=== PATIENT | male | born 1970 | race Caucasian/White ===

== ENCOUNTER → 2017-02-27 | Outpatient (CLI) | payer BC, OTHER ==
[~2017-02-27] MED LIST: ASCO10003 PO; FLNIN NAE; GLUCCAP5 PO; METO-217 PO; METO25TA3 PO; MULT-506 PO; NSNN50; PRLSR20 PO; TADA20TA PO
--- NOTE | 2017-02-27 13:00 | DIAGNOSTIC IMAGING REPORT ---
ULTRASOUND RIGHT LOWER EXTREMITY VENOUS CLINICAL HISTORY: Right leg pain and swelling. COMPARISON STUDY: No priors. TECHNIQUE: Real-time, grayscale, and color Doppler sonography of the deep veins of the right lower extremity was performed from the inguinal crease to the calf. Compression and augmentation were utilized. FINDINGS: There is no sonographic evidence of deep venous thrombosis identified in the right lower extremity. The common femoral, superficial femoral, and popliteal veins are patent and normally compressible. The greater saphenous vein and the profunda femoris vein at the junction with the common femoral vein are clear. The visualized calf veins are patent. IMPRESSION: There is no sonographic evidence of deep venous thrombosis identified in the right lower extremity. Electronically signed by: Robert Telles M.D. 02/27/2017 12:59 PM Dictated Date/Time: 02/27/2017 12:50 PM
== END | disposition home or self-care (01) ==
LOC: C.ULTRBC 12:15
PROVIDERS: ATTEND Physician Assistant
DX: M79.661 Pain in right lower leg (principal); M79.89 Other specified soft tissue disorders; Z98.890 Other specified postprocedural states

== ENCOUNTER → 2017-11-23 | Outpatient (CLI) | payer OTHER ==
[~2017-11-23] MED LIST changes: -METO25TA3 PO; +METO25TA4 PO
[2017-11-24 07:00] LABS: HEMOGLOBIN A1C 6.3 % (4.5-5.6)
== END | disposition home or self-care (01) ==
LOC: C.LAB 16:47
PROVIDERS: ATTEND Neuromusculoskeletal Medicine & OMM
DX: R73.9 Hyperglycemia, unspecified (principal)